=== PATIENT | female | born 1965 | race Two or more races ===

== ENCOUNTER 2025-02-13 16:10 | Emergency (ER) | payer MEDICAID, OTHER ==
[~2025-02-13] VITALS: Ht 167.6 cm; Wt 84.5 kg
[2025-02-13 16:50] VITALS: TEMP 99
--- NOTE | 2025-02-13 17:23 | ED.PDOC ---
History of Present Illness HPI Comments 59 y/o F, BIBA, with PMHx of DM, UTI's, and arthritis presents to the ED for CC of urinary. EMS reports, patient is coming from assisted living facility where she complains of Garcia Catheter pain x1week. Patient reports, that she has had a Garcia catheter placed x2 years ago d/t DM; endorses last time being changed x1week ago and has since, felt discomfort with associated suprapubic abdominal pain. Patient denies fever, chills, sweats, frequency, or excessive thirst. No other symptoms or modifying factors present at this time. Chief Complaint: Urinary Time Seen by MD: 17:00 Reviewed Notes: Nurses Notes, Beer Cooler Notes, Medications, Allergies Allergies: Coded Allergies: NO KNOWN ALLERGIES (Unverified , 02/13/25) Information Source: Patient, Emergency Med Personnel Mode of Arrival: EMS Severity: Moderate Timing: Days Duration: Since onset Prehospital treatment: None Past Medical History PAST MEDICAL HISTORY: Arthritis, DM, UTI'S Surgical History: Unknown SPEARER History: Denies all SPEARER Hx Family History Family History: Unknown Social History Smoker: Non-Smoker Alcohol: Denies ETOH Use Drugs: Denies Drug Use Lives In: Assisted Care Constitutional: denies: chills, diaphoresis, fatigue, fever, malaise, sweats, weakness, others EENTM: denies: blurred vision, double vision, ear bleeding, ear discharge, ear drainage, ear pain, ear ringing, eye pain, eye redness, hearing loss, mouth pain, mouth swelling, nasal discharge, nose bleeding, nose congestion, nose pain, photophobia, tearing, throat pain, throat swelling, voice changes, others Respiratory: denies: cough, hemoptysis, orthopnea, SOB at rest, shortness of breath, SOB with excertion, stridor, wheezing, others Cardiovascular: denies: chest pain, dizzy spells, diaphoresis, Dyspnea on exertion, edema, irregular heart beat, left arm pain, lightheadedness, palp itations, PND, syncope, others Gastrointestinal: denies: abdomen distended, abdominal pain, blood streaked bowels, constipated, diarrhea, dysphagia, difficulty swallowing, hematemesis, melena, nausea, poor appetite, poor fluid intake, rectal bleeding, rectal pain, vomiting, others Genitourinary: denies: abnormal vagina bleeding, burning, dyspareunia, dysuria, flank pain, frequency, hematuria, incontinence, pain, , vagina discharge, urgency, others Neurological: denies: dizziness, fainting, headache, left sided numbness, left sided weakness, numbness, paresthesia, pre-existing deficit, right sided numbness, right sided weakness, seizure, speech problems, tingling, tremors, weakness, others Musculoskeletal: denies: back pain, gout, joint pain, joint swelling, muscle pain, muscle stiffness, neck pain, others Integumetry: denies: bruises, change in color, change in hair/nails, dryness, laceration, lesions, lumps, rash, wounds, others Allergic/Immunocompromised: denies: Difficulty Healing, Frequent Infections, Hives, Itching, others Hematologic/Lymphatic: denies: anemia, blood clots, easy bleeding, easy br uising, swollen glands, others Endocrine: denies: excessive hunger, excessive sweating, excessive thirst, excessive urination, flushing, intolerance to cold, intolerance to heat, unexplained weight gain, unexplained weight loss, others Psychiatric: denies: anxiety, bipolar disorder, depression, hopeless, panic disorder, schizophrenia, sleepless, suicidal, others All Other Systems: Reviewed and Negative Physical Exam General Appearance: No Apparent Distress, Normal HEENT: Normal ENT Inspection, Pharynx Normal, TMs Normal Neck: Full Range of Motion, Non-Tender, Normal, Normal Inspection Respiratory: Chest Non-Tender, Lungs Clear, No Accessory Muscle Use, No Respiratory Distress, Normal Breath Sounds Cardiovascular: No Edema, No Murmur, No Gallop, Normal Peripheral Pulses, Regular Rate/Rhythm Breast Exam: Deferred Gastrointestinal: No Organomegaly, Non Tender, No Pulsatile Mass, Normal Bowel Sounds, Soft Genitalia: Deferred Pelvic: Deferred Rectal: Deferred Extremities: No calf tenderness, Normal capillary refill, Normal inspection, Normal range of motion, Non-tender, No pedal edema Musculoskeletal : Apperance: Normal Neurologic: Alert, 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 Was a procedure done?: No Differential Dx Considerations may include: UTI, MISPLACED GARCIA CATHETER, colitis, sbo, chronic pain X-Ray, Labs, Meds, VS Vital Signs Date Time Temp Pulse Resp B/P (MAP) Pulse Ox O2 Delivery O2 Flow Rate FiO2 02/13/25 17:00 Room Air* 0 21 02/13/25 16:50 99.0 96 16 122/50 (74) 97 99.0 02/13/25 16:35 98 02/13/25 16:20 99.0 100 18 130/100 (110) 99 99.0 Lab Test 02/13/25 17:44 02/13/25 17:15 Range/Units White Blood Count 8.4 4.4-10.8 10^3/uL Red Blood Count 4.11 4.0-5.20 10^6/uL Hemoglobin 12.3 12.2-16.2 g/dL Hematocrit 37.0 36.0-46.0 % Mean Corpuscular Volume 90.0 80.0-100.0 fL Mean Corpuscular Hemoglobin 29.9 28.0-32.0 pg Mean Corpuscular Hemoglobin Concent 33.3 32.0-36.0 g/dL Red Cell Distribution Width 14.0 11.8-14.3 % Platelet Count 322 140-450 10^3/uL Mean Platelet Volume 7.4 6.9-10.8 fL Neutrophils (%) (Auto) 71.1 37.0-80.0 % Lymphocytes (%) (Auto) 19.3 10.0-50.0 % Monocytes (%) (Auto) 5.4 0.0-12.0 % Eosinophils (%) (Auto) 3.6 0.0-7.0 % Basophils (%) (Auto) 0.6 0.0-2.0 % Neutrophils # (Auto) 6.0 1.6-8.6 10 ^3/uL Lymphocytes # (Auto) 1.6 0.4-5.4 10 ^3/uL Monocytes # (Auto) 0.5 0-1.3 10 ^3/uL Eosinophils # (Auto) 0.3 0-0.8 10 ^3/uL Basophils # (Auto) 0.1 0-0.2 10 ^3/uL Nucleated Red Blood Cells 0.0 % Sodium Level 139 136-145 mmol/L Potassium Level 4.7 3.5-5.1 mmol/L Chloride Level 107 98-107 mmol/L Carbon Dioxide Level 24 20-31 mmol/L Anion Gap 8 5-15 Blood Urea Nitrogen 29 H 9-23 mg/dL Creatinine 1.21 H 0.550-1.02 mg/dL Glomerular Filtration Rate Calc 51 >90 mL/min BUN/Creatinine Ratio 24.0 H 10.0-20.0 Serum Glucose 171 H 74-106 mg/dL Calcium Level 9.9 8.7-10.4 mg/dL Total Bilirubin 0.4 0.2-1.0 mg/dL Aspartate Amino Transferase (AST) < 8 L 13-40 U/L Alanine Aminotransferase (ALT) 12 7-40 U/L Alkaline Phosphatase 120 H 46-116 U/L Total Protein 7.5 5.7-8.2 g/dL Albumin 4.4 3.2-4.8 g/dL Urine Color Colorless Yellow Urine Clarity Ex.turbid Clear Urine pH 5.5 5.0-9.0 Urine Specific [place] 1.022 1.001-1.035 Urine Protein Trace H Negative Urine Ketones Negative Negative Urine Blood 1+ H Negative /uL Urine Nitrite 1+ H Negative Urine Bilirubin Negative Negative Urine Urobilinogen Normal Negative mg/dL Urine Leukocyte Esterase 3+ Negative /uL Urine RBC 46 0 - 4 /hpf Urine WBC Clumps Present None Seen /hpf Urine Microscopic WBC 745 H 0-5 /HPF Urine Squamous Epithelial Cells Few <5 /hpf Urine Bacteria Few H None Seen /hpf Urine Mucus Few None Seen Urine Yeast (Budding) Moderate None Seen /hpf Urine Glucose 4+ H Normal mg/dL [place] [id number] Ph: [phone] DIAGNOSTIC IMAGING Diagnostic Imaging Report : [id number] Signed PATIENT: VINNY RAIACCT: [id number] UNIT: [id number] : 1965 LOC: ER ROOM / BED: / AGE / SEX: 59 / F ADM STATUS: REG ER SERVICE 1700 ORDERING PHYSICIAN: VINNIE SOW MD PROCEDURE(s): ABPL - CT AB PEL WO CON-NO ORAL OR IV REASON: lowr abdominal pain ORDER NUMBER(s): [id number], ACCESSION NUMBER(s): [id number] Exam: CT CT AB PEL WO CON-NO ORAL OR IV History: lowr abdominal pain Comparison Study: None TECHNIQUE: Multidetector CT of the abdomen was performed from lung bases to pubic symphysis. Imaging was performed without IV contrast. Axial, coronal and sagittal multiplanar reformats were obtained from the axial data set by the technologist. Radiation Dose Information: CT Dose: CTDI volume is 20.94 mGy. Dose-length product is 1132.35 mGy*cm FINDINGS: Evaluation of solid organs is limited due to lack of intravenous contrast use. Findings: Lung Bases: No acute or significant lung base finding. Normal heart size. No pleural or pericardial effusion. Liver: The liver is normal in size. No focal lesions. Hepatomegaly with the liver measuring 19-20 cm in length. Gallbladder and Biliary Tree: Gallbladder has been surgically removed. Spleen: Spleen measures 11 cm. Pancreas: The pancreas is grossly normal in appearance. Adrenal Glands: Unremarkable Kidneys: Staghorn calculus right kidney with cortical atrophy and renal atrophy on the right. Bladder: Garcia catheter in the bladder in the bladder is empty. Bowel: The stomach is grossly normal in appearance. Small bowel and colon are normal in caliber and distribution. The appendix is not visualized; however, no secondary findings of acute appendicitis identified. Ascites: Absent Lymphadenopathy: No mesenteric, retroperitoneal or periportal lymphadenopathy. Abdominal Wall and Mesentery: Unremarkable. Vasculature: The visualized abdominal aorta is normal in size and caliber. Evaluation of abdominal and pelvic vessels is limited due to lack of intravenous contrast. Pelvic Organs: Unremarkable Musculoskeletal: No aggressive focal bony lesions, acute fractures or dislocation. Chronic changes with a right hip there is marked superior joint space narrowing and flattening of the head of the femur on the right. On the left there is an intramedullary reema in the left femur. Soft tissues: Unremarkable IMPRESSION: 1. Calculus on the right with cortical atrophy and renal atrophy. 2. Compensatory enlargement of the left kidney 3. Hepatomegaly with the liver measuring 19-20 cm in length. 4. Mild splenomegaly with the spleen measuring 11 cm. 5. Chronic changes right hip 6. Intramedullary reema left femur. 7. Garcia catheter in the bladder in the bladder is empty. HS:Y Radiation optimization: All CT scans at this facility use at least one of these dose optimization techniques: automated exposure control mA and/or kV adjustment per patient size (includes targeted exams where dose is matched to clinical indication) or iterative reconstruction. ATED BY: MONET ART Jr., DO DICTATED DATE/TIME: 02/13/251750 SIGNED BY: MONET ART Jr., SIGNED DATE/TIME: 02/13/251750 CC: Time of 1ST Reevaluation: 17:30 Reevaluation 1ST: Unchanged Patient Education/Counseling: Diagnosis, Treatment, Prognosis, Need For Follow Up Family Education/Counseling: No Family Present Additional Information The following tests were ordered, and results were reviewed by me: CBC, CMP, UA, CT ABD PEL I reviewed and agreed with the following test results read by other providers: CT ABD PEL I discussed treatment and results with medical personnel and: patient Comprehensive systems review obtained and negative except for what is stated in the HPI. pt refused to have her garcia replaced. her garcia is properly positioned, but has has an uti, which can from chronic colonization. since she has discomfort, i will treat her for cystitis Departure 1 Departure Time of Disposition: 19:04 Impression: Primary Impression: Cystitis Disposition: 01 HOME / SELF CARE / HOMELESS Condition: Good e-Prescriptions Ciprofloxacin Hcl (Cipro) 500 Mg Tab 500 MG PO BID for 7 Days, #14 TAB Prov: VINNIE SOW MD 02/13/25 Discharged With: Self Critical Care Note Critical Care Time?: No Stability Stability form required: No Heart Score Heart Score: Heart Score Response (Comments) Value History N/A 0 EKG N/A 0 Age N/A 0 Risk Factors N/A 0 Troponin N/A 0 Total 0 I personally scribed for VINNIE SOW MD ([email or web address]) on 02/13/25 at 17:23. Electronically submitted by Mira Clements ([email or web address]). I personally scribed for VINNIE SOW MD ([email or web address]) on 02/13/25 at 17:31. Electronically submitted by Mira Clements ([email or web address]). I personally scribed for VINNIE SOW MD ([email or web address]) on 02/13/25 at 18:15. Electronically submitted by Mira Clements ([email or web address]). I personally scribed for VINNIE SOW MD ([facility]) on 02/13/25 at 18:16. Electronically submitted by Mira Clements [email or web address]). I personally scribed for VINNIE SOW MD ([facility]) on 02/13/25 at 18:18. Electronically submitted by Mira Clements [email or web address]). VINNIE SOW MD February 13, 2025 17:23
[2025-02-13 17:50] LABS: Basophils # (auto) 0.1 10 ^3/uL (0-0.2); Basophils % (auto) 0.6 % (0.0-2.0); Eosinophils # (auto) 0.3 10 ^3/uL (0-0.8); Eosinophils % (auto) 3.6 % (0.0-7.0); Hemoglobin 12.3 g/dL (12.2-16.2); Lymphocytes # (auto) 1.6 10 ^3/uL (0.4-5.4); Lymphocytes % (auto) 19.3 % (10.0-50.0); Mean Corpuscular Hemoglobin 29.9 pg (28.0-32.0); Mean Corpuscular Hgb Conc. 33.3 g/dL (32.0-36.0); Monocytes # (auto) 0.5 10 ^3/uL (0-1.3); Monocytes % (auto) 5.4 % (0.0-12.0); Neutrophils % (auto) 71.1 % (37.0-80.0); Platelet Count (auto) 322 10^3/uL (140-450); Red Blood Cells 4.11 10^6/uL (4.0-5.20); White Blood Cell 8.4 10^3/uL (4.4-10.8)
--- NOTE | 2025-02-13 17:53 | DVH ---
Exam: CT CT AB PEL WO CON-NO ORAL OR IV History: lowr abdominal pain Comparison Study: None TECHNIQUE: Multidetector CT of the abdomen was performed from lung bases to pubic symphysis. Imaging was performed without IV contrast. Axial, coronal and sagittal multiplanar reformats were obtained fr om the axial data set by the technologist. Radiation Dose Information: CT Dose: CTDI volume is 20.94 mGy. Dose-length product is 1132.35 mGy*cm FINDINGS: Evaluation of solid organs is limited due to lack of intravenous contrast use. Findings: Lung Bases: No acute or significant lung base finding. Normal heart size. No pleural or pericardial effusion. Liver: The liver is normal in size. No focal lesions. Hepatomegaly with the liver measuring 19-20 cm in length. Gallbladder and Biliary Tree: Gallbladder has been surgically removed. Spleen: Spleen measures 11 cm. Pancreas: The pancreas is grossly normal in appearance. Adrenal Glands: Unremarkable Kidneys: Staghorn calculus right kidney with cortical atrophy and renal atrophy on the right. Bladder: Gutiérrez catheter in the bladder in the bladder is empty. Bowel: The stomach is grossly normal in appearance. Small bowel and colon are normal in caliber and d istribution. The appendix is not visualized; however, no secondary findings of acute appendicitis id entified. Ascites: Absent Lymphadenopathy: No mesenteric, retroperitoneal or periportal lymphadenopathy. Abdominal Wall and Mesentery: Unremarkable. Vasculature: The visualized abdominal aorta is normal in size and caliber. Evaluation of abdominal a nd pelvic vessels is limited due to lack of intravenous contrast. Pelvic Organs: Unremarkable Musculoskeletal: No aggressive focal bony lesions, acute fractures or dislocation. Chronic changes wi th a right hip there is marked superior joint space narrowing and flattening of the head of the femur on the right. On the left there is an intramedullary reema in the left femur. Soft tissues: Unremarkable IMPRESSION: 1. Calculus on the right with cortical atrophy and renal atrophy. 2. Compensatory enlargement of the left kidney 3. Hepatomegaly with the liver measuring 19-20 cm in length. 4. Mild splenomegaly with the spleen measuring 11 cm. 5. Chronic changes right hip 6. Intramedullary reema left femur. 7. Gutiérrez catheter in the bladder in the bladder is empty. HS:Y Radiation optimization: All CT scans at this facility use at least one of these dose optimization dontae hniques: automated exposure control mA and/or kV adjustment per patient size (includes targeted exam s where dose is matched to clinical indication) or iterative reconstruction.
[2025-02-13 18:07] LABS: Alanine Aminotransferase 12 U/L (7-40); Albumin 4.4 g/dL (3.2-4.8); Anion Gap 8 (5-15); Calcium 9.9 mg/dL (8.7-10.4); Carbon Dioxide 24 mmol/L (20-31); Chloride 107 mmol/L (98-107); Potassium 4.7 mmol/L (3.5-5.1); Sodium 139 mmol/L (136-145); Total Protein 7.5 g/dL (5.7-8.2)
[2025-02-13 18:08] LABS: Bilirubin, Total 0.4 mg/dL (0.2-1.0)
[2025-02-13 18:36] LABS: Urine Bacteria FEW /hpf (None Seen); Urine Blood 1+ /uL (Negative); Urine Budding Yeast MODERATE /hpf (None Seen); Urine Clarity Ex.Turbid (Clear); Urine Color Colorless (Yellow); Urine Mucus FEW (None Seen); Urine Protein, UAD TRACE (Negative); Urine Specific Gravity 1.022 (1.001-1.035); Urine Squamous Epithelial Cell FEW /hpf (<5); Urine Urobilinogen Normal (Negative); Urine WBC 745 /HPF (0-5); Urine WBC Clumps PRESENT /hpf (None Seen); Urine pH 5.5 (5.0-9.0)
[2025-02-13 18:45] VITALS: BP 124/79; PULSE 102; RESP 17; O2SAT 98
[2025-02-13 18:49] LABS: Alkaline Phosphatase 120 U/L (46-116); Aspartate Aminotransferase < 8 U/L (13-40); Blood Urea Nitrogen 29 mg/dL (9-23); Glucose 171 mg/dL (74-106)
[2025-02-13] MEDS ORDERED: CIPROFLOXACIN HCL 500 MG TAB PO ONE (19:00)
[2025-02-13] MEDS ORDERED: CIPR-173 PO (19:04)
== END 2025-02-13 19:05 | disposition home or self-care (01) ==
LOC: EDBD 16:10 → ER 16:10
DX: N30.90 Cystitis, unspecified without hematuria (principal); M19.90 Unspecified osteoarthritis, unspecified site; E11.9 Type 2 diabetes mellitus without complications
CPT/HCPCS: 36415; 74176; 80053; 81001; 82947; 85025

== ENCOUNTER 2025-02-17 17:07 | Emergency (ER) | payer MEDICAID ==
[~2025-02-17] VITALS: Ht 162.6 cm; Wt 136.0 kg
[~2025-02-17 17:07] MED LIST: CIPR-173 PO
[2025-02-17 17:35] VITALS: PULSE 94; RESP 14; O2SAT 96
--- NOTE | 2025-02-17 18:05 | ED.PDOC ---
General HPI Comments oscar Duncan: L thumb, garcia cath burning. HPI: Poor Historian. Past Medical History: Kidney stones, bed-bound, arthritis, asthma, indwelling Garcia catheter, Past Surgical History: , lithotripsy, Vitals: temperature of 98.1F, pulse of 102, respiratory rate of 18, blood pressure of 91/67, SpO2 of 99%RA REVIEW OF SYSTEMS: CONSTITUTIONAL: Denies acute: fever, diaphoresis, chills, generalized weakness. HEAD: Denies acute: headache, photophobia Eyes: Denies acute: Double vision, vision loss, eye pain, eye discharge. EARS: Denies acute: tinnitus, hearing loss, ear discharge, ear pain, THROAT: Denies acute: sore throat, swelling, difficulty swallowing , pain with swallowing, change in voice. NECK: Denies acute: neck pain, neck swelling, stiff neck. HEART: Denies acute : chest pain, palpitations, LUNGS: Denies acute: SOB, wheezing, cough, hemoptysis ABDOMEN: Denies acute: abdominal pain, Nausea, Vomiting, diarrhea, melena , hematemesis, hematochezia SKIN: Denies acute: rash, redness, lesions, itchiness. EXTREMITIES: Denies acute: calf pain, numbness, tingling, weakness, Denies acute: Low back pain. Neuro: Denies acute: focal neurological deficit, motor or sensory focal neurological deficit, tremors, seizure like activity, confusion, dizziness, change in mental status, loss of bowel or bladder function, cauda equina like symptoms. : Denies acute: , hematuria, flank pain, increase in urinary frequency. PSYCH: Denies acute: hallucination, suicidal ideation, homicidal ideation. FEMALE: Denies acute: abnormal vaginal bleeding, foul odor, unusual discharge. PHYSICAL EXAM: General: ---mild-----acute distress, awake and alert. Head: normocephalic, atraumatic. Neck: supple, trachea is midline, no swelling. Throat: Normal phonation. Eyes:, no erythema, no purulent discharge, no proptosis, no icterus. Heart: regular rate, regular rhythm, no significant murmur appreciated. Lungs: no apparent respiratory distress, Able to speak in full sentences. No wheezing, no rhonchi, no crackles. No stridors Clear to auscultation bilaterally. Abdomen: non tender to palpation, non distended, soft, no guarding, no rebound, + bowel sounds. Obese. Neuro: Awake, Alert, oriented to name, self, situation, follows commands GCS=15. Speech is normal. Skin: no petechia, no purpura, no cyanosis, non-pale, not jaundice. Lower extremities: --no - Pitting edema no deformity, no focal swelling, no calf TTP. Makes eye contact. Bed-bound for multiple hip fractures. Indwelling Garcia catheter. Urine looks cloudy. Face: no apparent facial droop. Evaluation of the left thumb area of complaint: Left lateral aspect of the thumb has what appears to be an infection with pus that could be drained. We will attempt an I and D. there is tenderness to palpation over the distal left thumb with the some erythema and slight swelling. Patient is neurovascularly intact in the affected extremity. ED COURSE: Chief Complaint: Wound Check Time Seen by MD: 17:17 Primary Care Provider: UNKNOWN Reviewed notes: Nurses Notes, Allergies Allergies: Coded Allergies: NO KNOWN ALLERGIES (Unverified , 02/13/25) Home Meds Active Scripts Cephalexin Monohydrate (Cephalexin) 500 Mg Cap, 500 MG PO Q6HR for 7 Days, #28 TAB Prov:ANJU GOEL DO 02/17/25 Ciprofloxacin Hcl (Cipro) 500 Mg Tab, 500 MG PO BID for 7 Days, #14 TAB Prov:VINNIE SOW MD 02/13/25 Information Source: Patient Mode of Arrival: EMS Past Medical History PAST MEDICAL HISTORY: Arthritis, DM, UTI'S Surgical History: Unknown HEAD STRENGTH AND CONDITIONING COACH History: Denies all HEAD STRENGTH AND CONDITIONING COACH Hx Family History Family History: Unknown Social History Smoker: Non-Smoker Alcohol: Denies ETOH Use Drugs: Denies Drug Use Lives In: Assisted Care Was a procedure done? Was a procedure done?: Yes Sedation Sedation?: No Incision and Drainage Incision and Drainage: Abscess Location left thumb Notes LET and lidocaine were used for topical anesthesia. Betadine was used for cleaning the digit in the hand. Small needle puncture was used to Tunde the abscess. Proximally 1 cc of purulent content was drained. Patient tolerated the procedure well. The area was cleaned well again with Betadine and wound dressing was applied to the area. Wound care instructions given to the patient. Patient was given antibiotics. Differential Diagnosis Kidney stone (Female): N/A X-Ray, Labs, Meds, VS Vital Signs Date Time Temp Pulse Resp B/P (MAP) Pulse Ox O2 Delivery O2 Flow Rate FiO2 02/17/25 20:13 88 14 96 Room Air* 0 21 02/17/25 19:52 98.7 88 14 120/60 (80) 96 98.7 02/17/25 17:35 94 14 96 Room Air* 0 21 02/17/25 17:35 98.4 94 14 104/67 (79) 96 98.4 02/17/25 17:34 98.1 102 18 91/67 (75) 99 98.1 Lab Test 02/17/25 19:31 02/17/25 18:23 02/17/25 18:00 Range/Units Troponin I High Sensitivity < 3 L 3 L </=34 ng/L White Blood Count 9.1 4.4-10.8 10^3/uL Red Blood Count 4.00 4.0-5.20 10^6/uL Hemoglobin 12.0 L 12.2-16.2 g/dL Hematocrit 36.0 36.0-46.0 % Mean Corpuscular Volume 89.8 80.0-100.0 fL Mean Corpuscular Hemoglobin 30.0 28.0-32.0 pg Mean Corpuscular Hemoglobin Concent 33.4 32.0-36.0 g/dL Red Cell Distribution Width 14.0 11.8-14.3 % Platelet Count 301 140-450 10^3/uL Mean Platelet Volume 7.8 6.9-10.8 fL Neutrophils (%) (Auto) 72.6 37.0-80.0 % Lymphocytes (%) (Auto) 19.1 10.0-50.0 % Monocytes (%) (Auto) 5.6 0.0-12.0 % Eosinophils (%) (Auto) 2.3 0.0-7.0 % Basophils (%) (Auto) 0.4 0.0-2.0 % Neutrophils # (Auto) 6.6 1.6-8.6 10 ^3/uL Lymphocytes # (Auto) 1.7 0.4-5.4 10 ^3/uL Monocytes # (Auto) 0.5 0-1.3 10 ^3/uL Eosinophils # (Auto) 0.2 0-0.8 10 ^3/uL Basophils # (Auto) 0 0-0.2 10 ^3/uL Nucleated Red Blood Cells 0.0 % Erythrocyte Sedimentation Rate 58 H 0-20 mm/hr Sodium Level 139 136-145 mmol/L Potassium Level 4.2 3.5-5.1 mmol/L Chloride Level 107 98-107 mmol/L Carbon Dioxide Level 22 20-31 mmol/L Anion Gap 10 5-15 Blood Urea Nitrogen 30 H 9-23 mg/dL Creatinine 1.21 H 0.550-1.02 mg/dL Glomerular Filtration Rate Calc 51 >90 mL/min BUN/Creatinine Ratio 24.8 H 10.0-20.0 Serum Glucose 156 H 74-106 mg/dL Lactic Acid Level 1.8 0.4-2.0 mmol/L Calcium Level 8.9 8.7-10.4 mg/dL Total Bilirubin 0.2 0.2-1.0 mg/dL Aspartate Amino Transferase (AST) < 8 L 13-40 U/L Alanine Aminotransferase (ALT) < 9 7-40 U/L Alkaline Phosphatase 116 46-116 U/L C-Reactive Protein High Sensitivity 2.22 H <1.0 mg/dL B-Type Natriuretic Peptide 8.51 0-100 pg/mL Total Protein 7.2 5.7-8.2 g/dL Albumin 4.2 3.2-4.8 g/dL Urine Color Colorless Yellow Urine Clarity Turbid H Clear Urine pH 5.5 5.0-9.0 Urine Specific Fields 1.024 1.001-1.035 Urine Protein Trace H Negative Urine Ketones Negative Negative Urine Blood Trace H Negative /uL Urine Nitrite 2+ H Negative Urine Bilirubin Negative Negative Urine Urobilinogen Normal Negative mg/dL Urine Leukocyte Esterase 3+ Negative /uL Urine RBC 17 0 - 4 /hpf Urine WBC Clumps Present None Seen /hpf Urine Microscopic WBC 153 H 0-5 /HPF Urine Squamous Epithelial Cells Few <5 /hpf Urine Bacteria Few H None Seen /hpf Urine Mucus Few None Seen Urine Yeast (Budding) Few None Seen /hpf Urine Glucose 4+ H Normal mg/dL Current Medications Medications (Trade) Dose Ordered Sig/Shira Route Start Time Stop Time Status Last Admin Ceftriaxone Sodium 50 ml @ 100 mls/hr ONCE ONCE IV 02/17/25 21:00 02/17/25 21:29 DC 02/17/25 21:38 Lidocaine HCl (Lidocaine HCl Jelly) 5 ml ONCE ONCE TOP 02/17/25 22:15 02/17/25 22:16 DC 02/17/25 22:10 Tetracaine/ Epinephrine/ Lidocaine 5 ml ONCE ONCE TOP 02/17/25 22:15 02/17/25 22:16 DC 02/17/25 22:10 Acetaminophen/ Hydrocodone Bitart ([place] 5/325MG Tab) 1 tab ONCE ONCE PO 02/17/25 23:00 02/17/25 23:01 DC 02/17/25 23:02 [place] [id number] Ph: [phone] DIAGNOSTIC IMAGING Diagnostic Imaging Report : [id number] Signed PATIENT: OSCAR DUNCAN ACCT: [id number] UNIT: [id number] : 1965 LOC: ER ROOM / BED: / AGE / SEX: 59 / F ADM STATUS: REG ER SERVICE 1723 ORDERING PHYSICIAN: ANJU GOEL DO PROCEDURE(s): CXRP - CHEST PORTABLE REASON: Multiple complaints ORDER NUMBER(s): [id number], ACCESSION NUMBER(s): [id number] CHEST RADIOGRAPH Indication: Multiple complaints Technique: Single frontal view of the chest was obtained Comparison: None FINDINGS: Lines and Tubes: None Lungs: No focal consolidation. Pleura: No effusion. No pneumothorax. Cardiomediastinal contours: Unremarkable Bones: Intramedullary reema in the right humerus. Old healed right clavicle fracture IMPRESSION: 1. No acute cardiopulmonary disease. ATED BY: MONET ART Jr., DO DICTATED DATE/TIME: 02/17/252033 SIGNED BY: MONET ART Jr., DO SIGNED DATE/TIME: 02/17/252033 CC: Time of 1ST Reevaluation: 22:53 Reevaluation 1ST: Improved Time of 2ND Reevaluation: 23:20 (PATIENT FEELS SIGNIFICANTLY BETTER AFTER THE GARCIA CATHETER WAS REPLACED.) Reevaluation 2ND: Improved Patient Education/Counseling: Diagnosis, Treatment Family Education/Counseling: No Family Present Comments LET and lidocaine were used for topical anesthesia. Betadine was used for cleaning the digit in the hand. Small needle puncture was used to Tunde the abscess. Proximally 1 cc of purulent content was drained. Patient tolerated the procedure well. The area was cleaned well again with Betadine and wound dressing was applied to the area. Wound care instructions given to the patient. Patient was given antibiotics. Patient presented with the above HPI.--urinary/Garcia catheter discomfort----workup was initiated. patient was found with the above mentioned diagnosis. Patient states that she was here two days ago to have a Garcia catheter removed but they did not. She continues to have some discomfort at the catheter site. the following medications were ordered: please refer to order lists of meds and tests obtained by myself Dr. Goel. Patient ED course and VS have been stabilized. Patient has been reassessed in the ED and remained in a stable condition. Pertinent incidental findings were discussed with the patient and/or family. Patient/family voices understanding and is agreeable with plan. Patient has been observed in the ED adequate length of time to insure improvement/stability. Escalation of care considered: Consideration of escalation to observation or admission Patient was found with a cystitis UTI. Antibiotics initiated. Patient was found with paronychia. I and D was performed. Patient was sent home with antibiotics. Patient was DISCHARGED home in a stable condition. All the reports of any imaging studies that were ordered by myself were reviewed by myself. Departure 1 Departure Time of Disposition: 22:54 Impression: Primary Impression: UTI (urinary tract infection) Additional Impressions: Cystitis Paronychia of finger Disposition: 01 HOME / SELF CARE / HOMELESS Condition: Stable Additional Instructions: Additional instructions: You MUST follow-up with your primary care/family doctor in 1 to 2 days. If you are unable to see your primary care/family doctor, please return to our emergency room for re-assessment and re-evaluation in 1 to 2 days. Return to the emergency room here in our facility or to the nearest ER [facility] if your symptoms change or worsen. CONSULTATIONS: you MUST Follow-up for consultation as soon as possible with: -urology in 1-2 days. And hand orthopedic surgeon in 1-2 days. Please call for appointment. You MUST call the consultants office yourself to make an appointment. You may need to arrange that through your insurance and/or your primary/family doctor. If you are unable to see the chain sales consultant in 1 to 2 days, you must return to our emergency room (or any other ER of your choice) for re-assessment and re- evaluation. Adequate fluid hydration. Do not submerge your hand in the next 48 hours. e-Prescriptions Cephalexin Monohydrate (Cephalexin) 500 Mg Cap 500 MG PO Q6HR for 7 Days, #28 TAB Prov: ANJU GOEL DO 02/17/25 Discharged With: Self Critical Care Note Critical Care Time?: No I personally scribed for ANJU GOEL DO ([email or web address]) on 02/17/25 at 23:35. Electronically submitted by Cesar Arevalo ([email or web address]). ANJU GOEL DO February 17, 2025 18:05
[2025-02-17 18:44] LABS: Basophils # (auto) 0 10 ^3/uL (0-0.2); Basophils % (auto) 0.4 % (0.0-2.0); Eosinophils # (auto) 0.2 10 ^3/uL (0-0.8); Eosinophils % (auto) 2.3 % (0.0-7.0); Lymphocytes # (auto) 1.7 10 ^3/uL (0.4-5.4); Lymphocytes % (auto) 19.1 % (10.0-50.0); Mean Corpuscular Hgb Conc. 33.4 g/dL (32.0-36.0); Mean Corpuscular Volume 89.8 fL (80.0-100.0); Monocytes # (auto) 0.5 10 ^3/uL (0-1.3); Monocytes % (auto) 5.6 % (0.0-12.0); Neutrophils # (auto) 6.6 10 ^3/uL (1.6-8.6); Neutrophils % (auto) 72.6 % (37.0-80.0); Platelet Count (auto) 301 10^3/uL (140-450); White Blood Cell 9.1 10^3/uL (4.4-10.8)
[2025-02-17 18:55] LABS: Albumin 4.2 g/dL (3.2-4.8); Anion Gap 10 (5-15); BUN/Creatinine Ratio 24.8 (10.0-20.0); Calcium 8.9 mg/dL (8.7-10.4); Carbon Dioxide 22 mmol/L (20-31); Chloride 107 mmol/L (98-107); Potassium 4.2 mmol/L (3.5-5.1); Sodium 139 mmol/L (136-145); Total Protein 7.2 g/dL (5.7-8.2)
[2025-02-17 19:03] LABS: Alanine Aminotransferase < 9 U/L (7-40); Alkaline Phosphatase 116 U/L (46-116); Aspartate Aminotransferase < 8 U/L (13-40); Bilirubin, Total 0.2 mg/dL (0.2-1.0); Blood Urea Nitrogen 30 mg/dL (9-23); Glucose 156 mg/dL (74-106)
[2025-02-17 19:18] LABS: Erythrocyte Sedimentation Rate 58 mm/hr (0-20)
[2025-02-17 19:24] LABS: CRP High Sensitivity 2.22 mg/dL (<1.0)
[2025-02-17 19:52] VITALS: BP 120/60; TEMP 98.7
[2025-02-17 20:13] VITALS: PULSE 88; RESP 14; O2SAT 96
[2025-02-17 20:31] LABS: Urine Bacteria FEW /hpf (None Seen); Urine Blood TRACE /uL (Negative); Urine Budding Yeast FEW /hpf (None Seen); Urine Clarity Turbid (Clear); Urine Color Colorless (Yellow); Urine Mucus FEW (None Seen); Urine Protein, UAD TRACE (Negative); Urine Specific Gravity 1.024 (1.001-1.035); Urine Squamous Epithelial Cell FEW /hpf (<5); Urine Urobilinogen Normal (Negative); Urine WBC 153 /HPF (0-5); Urine WBC Clumps PRESENT /hpf (None Seen); Urine pH 5.5 (5.0-9.0)
--- NOTE | 2025-02-17 20:36 | DVH ---
CHEST RADIOGRAPH Indication: Multiple complaints Technique: Single frontal view of the chest was obtained Comparison: None FINDINGS: Lines and Tubes: None Lungs: No focal consolidation. Pleura: No effusion. No pneumothorax. Cardiomediastinal contours: Unremarkable Bones: Intramedullary reema in the right humerus. Old healed right clavicle fracture IMPRESSION: 1. No acute cardiopulmonary disease.
[2025-02-17] MEDS: cefTRIAXone 1GM/50ML D5W 50 ML IV ONE (21:38)
[2025-02-17] MEDS: LIDOCAINE VISCOUS 2% 15ML UD MT ONE (22:07)
[2025-02-17] MEDS: LIDOCAINE 2% TOPICAL JELLY 5 ML URJT TOP ONE (22:10)
[2025-02-17] MEDS: LET TOPICAL SOLN 5 ML TOP ONE (22:10)
[2025-02-17] MEDS ORDERED: CEPH500C PO (22:55)
[2025-02-17] MEDS: HYDROcodone-ACET 5/325MG TAB PO ONE (23:02)
--- NOTE | 2025-02-25 06:54 | ECG ---
[facility] Test Date: 2025-02-13 Test Time: 16:35:49 Pat Name: VINNY RAI Department: ED Room: Gender: F Executive Business Coach: VINNIE : 1965 Requested By: ANJU GOEL Order Number: [id number] Reading MD: Sal Eisenberg Measurements Intervals [place] Rate: 98 P: 59 OK: 130 QRS: -26 QRSD: 123 T: 27 QT: 374 QTc: 478 Interpretive Statements Sinus rhythm Right bundle branch block Baseline wander in lead(s) II,III,aVR,aVF,V5 Electronically Signed On 02-25-2025 9:28:52 PDT by Sal Eisenberg Please click the below link to view image of tracing.
== END 2025-02-17 23:10 | disposition home or self-care (01) ==
LOC: EDUNIT# 17:07 → EDBD 17:07 → ER 17:07
DX: L03.012 Cellulitis of left finger (principal); N39.0 Urinary tract infection, site not specified; M19.90 Unspecified osteoarthritis, unspecified site; E11.9 Type 2 diabetes mellitus without complications; Z79.899 Other long term (current) drug therapy
CPT/HCPCS: 10060; 36415; 71045; 80053; 81001; 83605; 83880; 84484; 85025; 85652; 86141; 87040; 93005; 96365; 99285; J0696

== ENCOUNTER 2025-02-18 03:44 | Inpatient (IN) | payer MEDICAID ==
[~2025-02-18] VITALS: Ht 165.1 cm; Wt 99.0 kg
[~2025-02-18 03:44] MED LIST changes: +CEPH500C PO
[2025-02-18] MEDS: HALOPERIDOL LACTATE 5 MG/ML INJ VIAL IM ONE (04:12)
--- NOTE | 2025-02-18 04:19 | ED.PDOC ---
History of Present Illness HPI Comments 59-year-old, morbidly obese and bed-bound F is BIBA for Gutiérrez catheter replacement inquirey. Patient was seen and discharged on 02/17/25 from [facility] ED for abscess on her right thumb. She claims on having her catheter replaced during encounter before being discharged and having associated discomfort ever since a longside claims of it not draining properly. Patient has a history of arthritis, indwelling Gutiérrez catheter, DM, kidney stones s/p lithotripsy, frequent UTI's, and assisted care. She denies having any fever, chills, nausea, vomiting, abdominal pain, or further associated symptoms. Chief Complaint: Tube Replacement Time Seen by MD: 03:40 Primary Care Provider: UNKNOWN Reviewed Notes: Nurses Notes, Wildland Firefighter Notes, Medications, Allergies Allergies: Coded Allergies: NO KNOWN ALLERGIES (Unverified , 02/13/25) Home Meds Active Scripts Cephalexin Monohydrate (Cephalexin) 500 Mg Cap, 500 MG PO Q6HR for 7 Days, #28 TAB Prov:ANJU GOEL DO 02/17/25 Ciprofloxacin Hcl (Cipro) 500 Mg Tab, 500 MG PO BID for 7 Days, #14 TAB Prov:VINNIE SOW MD 02/13/25 Information Source: Patient, Emergency Med Personnel Mode of Arrival: EMS Severity: Moderate Timing: Hours Duration: Since onset Prehospital treatment: 12 Lead EKG, [facility] Past Medical History PAST MEDICAL HISTORY: Arthritis, DM, Kidney Stones, UTI'S Past Medical History (Other): bed-bound, indwelling Gutiérrez catheter Surgical History: Surgical History (Other): lithotripsy DIRECTOR ADVERTISING History: Denies all DIRECTOR ADVERTISING Hx Family History Family History: Unknown Social History Smoker: Non-Smoker Alcohol: Denies ETOH Use Drugs: Denies Drug Use Lives In: Assisted Care (bed-bound) All Other Systems: Reviewed and Negative (Comprehensive systems review obtained and negative except for what is stated in the HPI.) Physical Exam General Appearance: No Apparent Distress, Obese HEENT: Normal ENT Inspection, Pharynx Normal, TMs Normal Neck: Full Range of Motion, Non-Tender, Normal, Normal Inspection Respiratory: Chest Non-Tender, Lungs Clear, No Accessory Muscle Use, No Respiratory Distress, Normal Breath Sounds Cardiovascular: No Edema, No JVD, No Murmur, No Gallop, Normal Peripheral Pulses, Regular Rate/Rhythm Breast Exam: Deferred Gastrointestinal: No Organomegaly, Non Tender, No Pulsatile Mass, Normal Bowel Sounds, Soft Genitalia: Other (Gutiérrez catheter in place ) Pelvic: Deferred Rectal: Deferred Extremities: No calf tenderness, Normal capillary refill, Normal inspection, Normal range of motion, Non-tender, No pedal edema Musculoskeletal : Apperance: Normal Neurologic: Alert, checkout supervisor II-XII nml as Tested, No Motor Deficits, Normal Affect, Normal Mood, No Sensory Deficits Cerebellar Function: Normal Reflexes: Normal Skin: Dry, Normal Color, Warm Lymphatic: No Adenopathy Was a procedure done? Was a procedure done?: No Differential Dx Considerations may include: Gutiérrez catheter replacement, UTI, cystitis, among others X-Ray, Labs, Meds, VS Vital Signs Date Time Temp Pulse Resp B/P (MAP) Pulse Ox O2 Delivery O2 Flow Rate FiO2 02/18/25 03:54 97.4 101 18 154/82 (106) 96 97.4 Lab Test 02/18/25 04:01 Range/Units White Blood Count 9.5 4.4-10.8 10^3/uL Red Blood Count 3.98 L 4.0-5.20 10^6/uL Hemoglobin 12.1 L 12.2-16.2 g/dL Hematocrit 36.2 36.0-46.0 % Mean Corpuscular Volume 90.8 80.0-100.0 fL Mean Corpuscular Hemoglobin 30.5 28.0-32.0 pg Mean Corpuscular Hemoglobin Concent 33.6 32.0-36.0 g/dL Red Cell Distribution Width 14.2 11.8-14.3 % Platelet Count 331 140-450 10^3/uL Mean Platelet Volume 7.8 6.9-10.8 fL Neutrophils (%) (Auto) 71.6 37.0-80.0 % Lymphocytes (%) (Auto) 20.2 10.0-50.0 % Monocytes (%) (Auto) 5.3 0.0-12.0 % Eosinophils (%) (Auto) 2.2 0.0-7.0 % Basophils (%) (Auto) 0.7 0.0-2.0 % Neutrophils # (Auto) 6.8 1.6-8.6 10 ^3/uL Lymphocytes # (Auto) 1.9 0.4-5.4 10 ^3/uL Monocytes # (Auto) 0.5 0-1.3 10 ^3/uL Eosinophils # (Auto) 0.2 0-0.8 10 ^3/uL Basophils # (Auto) 0.1 0-0.2 10 ^3/uL Nucleated Red Blood Cells 0.0 % Sodium Level 139 136-145 mmol/L Potassium Level 4.7 3.5-5.1 mmol/L Chloride Level 107 98-107 mmol/L Carbon Dioxide Level 24 20-31 mmol/L Anion Gap 8 5-15 Blood Urea Nitrogen 29 H 9-23 mg/dL Creatinine 1.35 H 0.550-1.02 mg/dL Glomerular Filtration Rate Calc 45 >90 mL/min BUN/Creatinine Ratio 21.5 H 10.0-20.0 Serum Glucose 240 H 74-106 mg/dL Calcium Level 9.4 8.7-10.4 mg/dL Current Medications Medications (Trade) Dose Ordered Sig/Shira Route Start Time Stop Time Status Last Admin Haloperidol Lactate (Haldol) 10 mg ONCE ONCE IM 02/18/25 04:00 02/18/25 04:01 DC 02/18/25 04:12 Time of 1ST Reevaluation: 04:20 Reevaluation 1ST: Unchanged Patient Education/Counseling: Diagnosis, Treatment, Need For Follow Up Family Education/Counseling: No Family Present Additional Information Previous visits reviewed: February 13 and 2024 encounters for catheter pain and "green thumb" The following tests were ordered, and results were reviewed by me: KUB abdomen single view, UA, CBC, BMP Additional Information was gathered from interviewing the following independent historians: EMS I reviewed and agreed with the following test results read by other providers: KUB abdomen single view I discussed treatment and results with medical personnel and: patient Departure 1 Departure Time of Disposition: 05:26 (Patient with intractable abdominal pain. We will admit patient for further workup and expert consultation) Impression: Primary Impression: Intractable abdominal pain Disposition: ADMITTED INPATIENT Admit to: Med Surg Condition: Serious Critical Care Note Critical Care Time?: No Stability Stability form required: No Heart Score Heart Score: Heart Score Response (Comments) Value History N/A 0 EKG N/A 0 Age N/A 0 Risk Factors N/A 0 Troponin N/A 0 Total 0 I personally scribed for KRISSY GARCIA MD ([email or web address]) on 02/18/25 at 04:19. Electronically submitted by Cesar Arevalo ([email or web address]). KRISSY GARCIA MD February 18, 2025 04:19
[2025-02-18 04:20] LABS: Basophils # (auto) 0.1 10 ^3/uL (0-0.2); Basophils % (auto) 0.7 % (0.0-2.0); Eosinophils # (auto) 0.2 10 ^3/uL (0-0.8); Eosinophils % (auto) 2.2 % (0.0-7.0); Hematocrit 36.2 % (36.0-46.0); Hemoglobin 12.1 g/dL (12.2-16.2); Lymphocytes # (auto) 1.9 10 ^3/uL (0.4-5.4); Lymphocytes % (auto) 20.2 % (10.0-50.0); Mean Corpuscular Hemoglobin 30.5 pg (28.0-32.0); Mean Corpuscular Hgb Conc. 33.6 g/dL (32.0-36.0); Mean Corpuscular Volume 90.8 fL (80.0-100.0); Monocytes # (auto) 0.5 10 ^3/uL (0-1.3); Monocytes % (auto) 5.3 % (0.0-12.0); Neutrophils # (auto) 6.8 10 ^3/uL (1.6-8.6); Neutrophils % (auto) 71.6 % (37.0-80.0); Platelet Count (auto) 331 10^3/uL (140-450); Red Blood Cells 3.98 10^6/uL (4.0-5.20); Red Cell Distribution Width 14.2 % (11.8-14.3); White Blood Cell 9.5 10^3/uL (4.4-10.8)
[2025-02-18 04:22] LABS: Chloride 107 mmol/L (98-107); Potassium 4.7 mmol/L (3.5-5.1); Sodium 139 mmol/L (136-145)
[2025-02-18 04:23] LABS: Anion Gap 8 (5-15); Carbon Dioxide 24 mmol/L (20-31)
[2025-02-18 04:24] LABS: Calcium 9.4 mg/dL (8.7-10.4)
[2025-02-18 04:28] LABS: BUN/Creatinine Ratio 21.5 (10.0-20.0)
[2025-02-18 04:30] VITALS: PULSE 97; RESP 24; O2SAT 97
[2025-02-18 04:34] LABS: Blood Urea Nitrogen 29 mg/dL (9-23); Glucose 240 mg/dL (74-106)
--- NOTE | 2025-02-18 05:09 | DVH ---
EXAM: XR Abdomen, 1 View CLINICAL INDICATION: abdominal pain TECHNIQUE: Frontal supine view of the abdomen/pelvis. COMPARISON: None FINDINGS: GASTROINTESTINAL TRACT: Fecal retention in the colon consistent with constipation. No dilation. ORGANS: Probable right nephrolithiasis. BONES/JOINTS: Severe degenerative change of the right hip joint. The patient is rotated. Subtle f racture can not be excluded. OTHER FINDINGS: . . IMPRESSION: 1. Fecal retention in the colon consistent with constipation. 2. Probable right nephrolithiasis.
[2025-02-18 07:04] LABS: Urine Bacteria FEW /hpf (None Seen); Urine Blood 2+ /uL (Negative); Urine Budding Yeast FEW /hpf (None Seen); Urine Clarity Turbid (Clear); Urine Color Colorless (Yellow); Urine Protein, UAD TRACE (Negative); Urine Specific Gravity 1.021 (1.001-1.035); Urine Squamous Epithelial Cell FEW /hpf (<5); Urine Urobilinogen Normal (Negative); Urine WBC 379 /HPF (0-5); Urine WBC Clumps PRESENT /hpf (None Seen); Urine pH 5.5 (5.0-9.0)
[2025-02-18 07:30] VITALS: PULSE 81; RESP 20; O2SAT 98
[2025-02-18] MEDS ORDERED: DEXTROSE (50%) 50ML SYRG IV PRN (10:15)
[2025-02-18] MEDS ORDERED: ONDANSETRON HCL 4 MG/2 ML VIAL IV PRN (10:15)
[2025-02-18] MEDS ORDERED: MORPHINE SULFATE INJ 2 MG/ml SYRG IV PRN (10:15)
[2025-02-18] MEDS ORDERED: NITROGLYCERIN 0.4 MG SL TAB SL PRN (10:15)
--- NOTE | 2025-02-18 10:33 | DVHHP2 ---
History of Present Illness Reason for Visit: Dysuria History of Present Illness Diandra Duncan is a 59-year-old female with past medical history of diabetes, asthma, arthritis, nephrolithiasis status post lithotripsy, chronic Gutiérrez catheter placed here at [facility] 1 year ago, frequent UTIs, wheelchair-bound, and who presents to the ED with burning pain while urinating in her Gutiérrez cath. Patient states that she does not use home oxygen however upon examination she is on 2 L nasal cannula. Patient also states that she is wheelchair-bound not bed-bound. Patient reports that she had the Gutiérrez cath placed in for urinary retention. Patient reports that she is from [facility] which is an assisted living facility. Patient denies any chest pain, fever, chills, lightheadedness, weakness, dizziness, recent travels, recent sick contacts, recent trauma or injury, abdominal pain, nausea, vomiting, or diarrhea. Pulmonary: Asthma Renal/: UTI Endocrine: Diabetes Past Medical History Arthritis Nephrolithiasis status post lithotripsy Chronic Gutiérrez for 1 year Wheelchair-bound Past Surgical History: , Other (Lithotripsy) Family History: None Smoke: # pack years ALCOHOL: heavy Drugs: None Lives: Other Domestic Violence: Neg Review of Systems Genitourinary: Dysuria Allergies: Coded Allergies: NO KNOWN ALLERGIES (Unverified , 02/13/25) Medications Current Medications Medications Dose Ordered Sig/Shira Route Start Time Stop Time Status Last Admin Dose Admin Ceftriaxone Sodium 50 ml @ 100 mls/hr DAILY@09 IV 02/18/25 10:15 UNV Polyethylene Glycol 17 gm DAILY PO 02/18/25 10:15 UNV Ondansetron HCl 4 mg Q4HP PRN IV 02/18/25 10:15 UNV Acetaminophen 650 mg Q6HP PRN PO 02/18/25 10:15 UNV Nitroglycerin 0.4 mg Q5MINP PRN SL 02/18/25 10:15 UNV Morphine Sulfate 2 mg Q30M PRN IV 02/18/25 10:15 UNV Enoxaparin Sodium 30 mg DAILY SC 02/19/25 10:00 UNV Diagnostic Test (Pha) 1 strip ACHS 02/18/25 11:30 UNV Insulin Human Regular ACHS SC 02/18/25 11:30 UNV Dextrose 50 ml UD PRN IV 02/18/25 10:15 UNV Exam Vital Signs Vital Signs Date Time Temp Pulse Resp B/P (MAP) Pulse Ox O2 Delivery O2 Flow Rate FiO2 02/18/25 08:00 97.6 80 20 121/65 (83) 99 97.6 02/18/25 07:30 Nasal Cannula* 2 28 General Appearance: Alert, Oriented X3, Cooperative, No acute distress HEENT: Atraumatic, PERRLA, EOMI, Mucous membr. moist/pink Respiratory: Clear to auscultation, Normal air movement Cardiovascular: Normal S1, Normal S2 Abdominal: Normal bowel sounds, Soft, No tenderness Extremities: No clubbing, No cyanosis Skin: No significant lesion Neuro: Normal speech, Normal tone, Sensation intact Psych/Mental Status: Mental status NL, Mood NL Labs/Xrays Labs Test 02/18/25 09:20 02/18/25 06:03 02/18/25 04:01 Range/Units POC Glucose 150 H 70-106 mg/dl Urine Color Colorless Yellow Urine Clarity Turbid H Clear Urine pH 5.5 5.0-9.0 Urine Specific [place] 1.021 1.001-1.035 Urine Protein Trace H Negative Urine Ketones Negative Negative Urine Blood 2+ H Negative /uL Urine Nitrite Negative Negative Urine Bilirubin Negative Negative Urine Urobilinogen Normal Negative mg/dL Urine Leukocyte Esterase 3+ Negative /uL Urine RBC 78 0 - 4 /hpf Urine WBC Clumps Present None Seen /hpf Urine Microscopic WBC 379 H 0-5 /HPF Urine Squamous Epithelial Cells Few <5 /hpf Urine Bacteria Few H None Seen /hpf Urine Yeast (Budding) Few None Seen /hpf Urine Glucose 4+ H Normal mg/dL White Blood Count 9.5 4.4-10.8 10^3/uL Red Blood Count 3.98 L 4.0-5.20 10^6/uL Hemoglobin 12.1 L 12.2-16.2 g/dL Hematocrit 36.2 36.0-46.0 % Mean Corpuscular Volume 90.8 80.0-100.0 fL Mean Corpuscular Hemoglobin 30.5 28.0-32.0 pg Mean Corpuscular Hemoglobin Concent 33.6 32.0-36.0 g/dL Red Cell Distribution Width 14.2 11.8-14.3 % Platelet Count 331 140-450 10^3/uL Mean Platelet Volume 7.8 6.9-10.8 fL Neutrophils (%) (Auto) 71.6 37.0-80.0 % Lymphocytes (%) (Auto) 20.2 10.0-50.0 % Monocytes (%) (Auto) 5.3 0.0-12.0 % Eosinophils (%) (Auto) 2.2 0.0-7.0 % Basophils (%) (Auto) 0.7 0.0-2.0 % Neutrophils # (Auto) 6.8 1.6-8.6 10 ^3/uL Lymphocytes # (Auto) 1.9 0.4-5.4 10 ^3/uL Monocytes # (Auto) 0.5 0-1.3 10 ^3/uL Eosinophils # (Auto) 0.2 0-0.8 10 ^3/uL Basophils # (Auto) 0.1 0-0.2 10 ^3/uL Nucleated Red Blood Cells 0.0 % Sodium Level 139 136-145 mmol/L Potassium Level 4.7 3.5-5.1 mmol/L Chloride Level 107 98-107 mmol/L Carbon Dioxide Level 24 20-31 mmol/L Anion Gap 8 5-15 Blood Urea Nitrogen 29 H 9-23 mg/dL Creatinine 1.35 H 0.550-1.02 mg/dL Glomerular Filtration Rate Calc 45 >90 mL/min BUN/Creatinine Ratio 21.5 H 10.0-20.0 Serum Glucose 240 H 74-106 mg/dL Calcium Level 9.4 8.7-10.4 mg/dL EXAM: XR Abdomen, 1 View CLINICAL INDICATION: abdominal pain TECHNIQUE: Frontal supine view of the abdomen/pelvis. COMPARISON: None FINDINGS: GASTROINTESTINAL TRACT: Fecal retention in the colon consistent with constipation. No dilation. ORGANS: Probable right nephrolithiasis. BONES/JOINTS: Severe degenerative change of the right hip joint. The patient is rotated. Subtle fracture can not be excluded. OTHER FINDINGS: . . IMPRESSION: 1. Fecal retention in the colon consistent with constipation. 2. Probable right nephrolithiasis. Assessment/Plan Assessment/Plan Assessment Dysuria likely due to acute cystitis with chronic Gutiérrez catheter for 1 year Constipation likely due to fecal retention Probable right nephrolithiasis Acute hypoxic respiratory failure SHANE Diabetes type 2 Obesity History of asthma History of arthritis History of nephrolithiasis status post lithotripsy History of chronic Gutiérrez for 1 year History of being wheelchair-bound History of Plan Admit to [facility] Supportive oxygen Renal ultrasound ordered Chest x-ray noted IV antibiotics -ceftriaxone Pain management Hemoglobin A1c ISS and Accu-Cheks Diet DVT prophylaxis-Lovenox PUD prophylaxis-not indicated no history of GERD or GI bleed Discussed plan of care with patient and nurse Counseled patient on lifestyle modifications, diet, and exercise Social work-patient from [facility] Plan discussed with: Patient My Orders Orders - ALISELORAINE GARAY SILK SP[employer]ER Procedure Category Date Status Time Ceftriaxone 1gm/50ml PHA 02/18/25 Logged D5w (Rocephin) 10:15 Urine Bacterial JOSE 02/18/25 Logged Culture 10:09 Lactulose Oral PHA 02/18/25 Logged 10:15 Polyethylene Glycol PHA 02/18/25 Logged 17g Powder (Miralax 10:15 Admit ADMIT 02/18/25 Transmitted 10:09 Allergies NITA 02/18/25 In Process 10:09 Oxygen Per Hour RT 02/18/25 Transmitted 10:09 Ondansetron Hcl PHA 02/18/25 Logged (Zofran) 10:15 Complete Blood Count LAB 02/19/25 Verified 04:00 Comprehensive LAB 02/19/25 Verified Metabolic Panel 04:00 Cardiac DIET 02/18/25 Transmitted Diet-2gna,Lofat,Lochol Lunch Condition: Stable NITA 02/18/25 In Process 10:09 Acetaminophen Tablet PHA 02/18/25 Logged (Tylenol Tablet) 10:15 Nitroglycerin PHA 02/18/25 Logged Sublingual (Ntrostat 10:15 Morphine Sulfate PHA 02/18/25 Logged Injection 10:15 Stat Ekg For Chest NITA 02/18/25 In Process Pain 10:09 Notify Of Changes NITA 02/18/25 In Process From Base 10:09 Sample Wrapper For NITA 02/18/25 In Process 24 Hours 10:09 Emergency Dysrhythmia NITA 02/18/25 In Process Protocol 10:09 Rhythm Strips Once NITA 02/18/25 In Process Every Shift 10:09 Oxygen By Nasal RT 02/18/25 Transmitted Cannula 10:09 Enoxaparin Sodium PHA 02/19/25 Logged (Lovenox) 10:00 Glucose Blood PHA 02/18/25 Logged (Accu-Chek Comfort 11:30 Insulin R (Human) PHA 02/18/25 Logged (Insulin R) 11:30 Dextrose 50% Syringe PHA 02/18/25 Logged 10:15 Hemoglobin A1c LAB 02/18/25 Logged 10:09 Date of Service: February 18, 2025 Billing Provider: LORAINE FONSECA Common Visit Codes: [id number] INP/OBS CARE (HIGH) LORAINE FONSECA February 18, 2025 10:33
[2025-02-18] MEDS: cefTRIAXone 1GM/50ML D5W 50 ML IV SCH (10:47)
[2025-02-18] MEDS: POLYETHYLENE GLYCOL 17 GM PWDR PO SCH (10:47)
[2025-02-18] MEDS: LACTULOSE 20Gm/30ML SOLN PO ONE (10:47)
[2025-02-18] MEDS ORDERED: MORPHINE SULFATE 4 MG/ML SYR/VIAL IV PRN (11:00)
[2025-02-18] MEDS: ACCU-CHEK COMFORT CURVE STRIP VI SCH (11:39)
[2025-02-18] MEDS: InsuLIN REG 1unit/0.01ml Soln (100units/ml) SC SCH (11:42)
[2025-02-18 15:05] VITALS: BP 110/73; PULSE 83; RESP 16; TEMP 97.5; O2SAT 99
[2025-02-18 17:00] VITALS: BP 110/73; PULSE 82; RESP 19; TEMP 97.5; O2SAT 99
--- NOTE | 2025-02-18 20:13 | DVH ---
US KIDNEY HISTORY: ro kidney stones COMPARISON: None TECHNIQUE: Sonographic grayscale and color doppler evaluation of the kidneys and urinary bladder was performed. FINDINGS: RIGHT: 6.9 cm. Increased echogenicity with cortical thinning. No hydronephrosis. Mid echogenic possib le stone measuring 1.2 cm. LEFT: 12.9 cm. Increased cortical echogenicity. No hydronephrosis. No focal renal mass lesion or shad owing stone BLADDER: The urinary bladder is well distended and appears unremarkable. Right and left ureteral jets are visualized. OTHER: None IMPRESSION: 1. Asymmetric smaller size of the right kidney. 2. Right 1.2 cm kidney stone no hydronephrosis.
[2025-02-18 21:00] VITALS: BP 103/75; PULSE 102; RESP 20; TEMP 99.5; O2SAT 97
[2025-02-18] MEDS: ACETAMINOPHEN 325 MG TAB PO PRN (22:37)
[2025-02-19 01:00] VITALS: BP 125/74; PULSE 96; RESP 20; TEMP 99; O2SAT 97
[2025-02-19 05:00] VITALS: BP 130/72; PULSE 86; RESP 19; TEMP 98.3; O2SAT 94
[2025-02-19 07:54] LABS: Basophils # (auto) 0 10 ^3/uL (0-0.2); Basophils % (auto) 0.4 % (0.0-2.0); Eosinophils # (auto) 0.2 10 ^3/uL (0-0.8); Eosinophils % (auto) 2.5 % (0.0-7.0); Hematocrit 34.8 % (36.0-46.0); Hemoglobin 11.7 g/dL (12.2-16.2); Lymphocytes # (auto) 1.6 10 ^3/uL (0.4-5.4); Lymphocytes % (auto) 18.1 % (10.0-50.0); Mean Corpuscular Hemoglobin 30.2 pg (28.0-32.0); Mean Corpuscular Hgb Conc. 33.7 g/dL (32.0-36.0); Mean Corpuscular Volume 89.6 fL (80.0-100.0); Monocytes # (auto) 0.6 10 ^3/uL (0-1.3); Monocytes % (auto) 7.3 % (0.0-12.0); Neutrophils # (auto) 6.3 10 ^3/uL (1.6-8.6); Neutrophils % (auto) 71.7 % (37.0-80.0); Nucleated Red Blood Cells % 0.1 %; Platelet Count (auto) 296 10^3/uL (140-450); Red Blood Cells 3.88 10^6/uL (4.0-5.20); Red Cell Distribution Width 14.2 % (11.8-14.3); White Blood Cell 8.8 10^3/uL (4.4-10.8)
[2025-02-19 08:13] LABS: Albumin 4.2 g/dL (3.2-4.8); Alkaline Phosphatase 101 U/L (46-116); Anion Gap 8 (5-15); BUN/Creatinine Ratio 20.4 (10.0-20.0); Blood Urea Nitrogen 22 mg/dL (9-23); Calcium 9.6 mg/dL (8.7-10.4); Carbon Dioxide 23 mmol/L (20-31); Potassium 4.4 mmol/L (3.5-5.1); Sodium 140 mmol/L (136-145); Total Protein 7.3 g/dL (5.7-8.2)
[2025-02-19 08:14] LABS: Alanine Aminotransferase < 9 U/L (7-40); Aspartate Aminotransferase 9 U/L (13-40); Bilirubin, Total 0.4 mg/dL (0.2-1.0); Chloride 109 mmol/L (98-107); Glucose 152 mg/dL (74-106)
[2025-02-19 09:00] VITALS: BP 108/71; PULSE 84; RESP 20; TEMP 96.6; O2SAT 98
[2025-02-19] MEDS ORDERED: ENOXAPARIN SOD 30 MG/0.3 ML SYRINGE SC SCH (10:00)
[2025-02-19] MEDS: ENOXAPARIN SOD 40 MG/0.4 ML SYRINGE SC SCH (10:09)
[2025-02-19 12:58] VITALS: BP 110/83; PULSE 92; RESP 18; TEMP 97.6; O2SAT 98
--- NOTE | 2025-02-19 14:24 | DVHPN2 ---
Reviewed: Care Plan, H&P, Labs, Medications, Previous Orders, Radiology Changes from previous H/P or p: No Changes General: Per HPI Genitourinary: Dysuria Objective Vitals Vital Signs Date Time Temp Pulse Resp B/P (MAP) Pulse Ox O2 Delivery O2 Flow Rate FiO2 02/19/25 12:58 97.6 92 18 110/83 (92) 98 97.6 02/19/25 08:04 Nasal Cannula* 2 28 Intake/Output Intake and Output 02/19/25 07:00 Intake Total 675 ml Output Total 1725 ml Balance -1050 ml Intake Oral 675 ml Output Urine Total 1725 ml # Bowel Movements 1 General Appearance: Alert, Oriented X3, Cooperative HEENT: Atraumatic Cardiovascular: Regular rate, Normal S1, Normal S2 Medications Current Medications Medications Dose Ordered Sig/Shira Route Start Time Stop Time Status Last Admin Dose Admin Ceftriaxone Sodium 50 ml @ 100 mls/hr DAILY@09 IV 02/18/25 10:15 02/19/25 10:00 100 MLS/HR Polyethylene Glycol 17 gm DAILY PO 02/18/25 10:15 02/19/25 10:05 17 GM Ondansetron HCl 4 mg Q4HP PRN IV 02/18/25 10:15 Acetaminophen 650 mg Q6HP PRN PO 02/18/25 10:15 02/19/25 12:53 650 MG Nitroglycerin 0.4 mg Q5MINP PRN SL 02/18/25 10:15 Morphine Sulfate 2 mg Q30M PRN IV 02/18/25 10:15 UNV Enoxaparin Sodium 30 mg DAILY SC 02/19/25 10:00 Cancel Diagnostic Test (Pha) 1 strip ACHS 02/18/25 11:30 02/19/25 11:31 1 STRIP Insulin Human Regular ACHS SC 02/18/25 11:30 02/19/25 11:17 4 UNITS Dextrose 50 ml UD PRN IV 02/18/25 10:15 Morphine Sulfate 2 mg Q30M PRN IV 02/18/25 11:00 Enoxaparin Sodium 40 mg DAILY SC 02/19/25 10:00 02/19/25 10:09 40 MG Laboratory Results Laboratory Tests 02/19/25 07:31 Chemistry Test 02/19/25 07:31 Albumin 4.2 g/dL (3.2-4.8) Calcium Level 9.6 mg/dL (8.7-10.4) Total Protein 7.3 g/dL (5.7-8.2) LFT Test 02/19/25 07:31 Alanine Aminotransferase (ALT) < 9 U/L (7-40) Alkaline Phosphatase 101 U/L (46-116) Aspartate Amino Transferase (AST) 9 U/L (13-40) L Total Bilirubin 0.4 mg/dL (0.2-1.0) Urinalysis Test 02/18/25 06:03 Urine Color Colorless (Yellow) Urine Clarity Turbid (Clear) H Urine pH 5.5 (5.0-9.0) Urine Specific [place] 1.021 (1.001-1.035) Urine Protein Trace (Negative) H Urine Ketones Negative (Negative) Urine Blood 2+ /uL (Negative) H Urine Nitrite Negative (Negative) Urine Bilirubin Negative (Negative) Urine Urobilinogen Normal mg/dL (Negative) Urine Leukocyte Esterase 3+ /uL (Negative) Urine RBC 78 /hpf (0 - 4) Urine WBC Clumps Present /hpf (None Seen) Urine Microscopic WBC 379 /HPF (0-5) H Urine Squamous Epithelial Cells Few /hpf (<5) Urine Bacteria Few /hpf (None Seen) H Urine Yeast (Budding) Few /hpf (None Seen) Urine Glucose 4+ mg/dL (Normal) H Microbiology Microbiology Date/Time Source Procedure Growth Status 02/18/25 06:03 Urine - Guti[place] Urine Culture - Preliminary Resulted Labs and/or images reviewed: Labs reviewed by me, Image(s) reviewed by me Assessment/Plan Assessment/Plan Diandra Duncan is a 59-year-old female with past medical history of diabetes, asthma, arthritis, nephrolithiasis status post lithotripsy, chronic Gutiérrez catheter placed here at [facility] 1 year ago, frequent UTIs, wheelchair-bound, and who presents to the ED with burning pain while urinating in her Gutiérrez cath. Patient states that she does not use home oxygen however upon examination she is on 2 L nasal cannula. Patient also states that she is wheelchair-bound not bed-bound. Patient reports that she had the Gutiérrez cath placed in for urinary retention. Patient reports that she is from [facility] which is an assisted living facility Dysuria likely due to acute cystitis with chronic Gutiérrez catheter for 1 year Constipation likely due to fecal retention Probable right nephrolithiasis Acute hypoxic respiratory failure SHANE Diabetes type 2 Obesity History of asthma History of arthritis History of nephrolithiasis status post lithotripsy History of chronic Gutiérrez for 1 year History of being wheelchair-bound History of 02/19/2025: kidney stone evaluation by urology. empirical iv abx, pain control nephrology on board. Plan discussed with: Patient Date of Service: February 19, 2025 Billing Provider: CYN CHAVEZ DO Common Visit Codes: [id number] INP/OBS CARE(HIGH) CYN CHAVEZ DO February 19, 2025 14:24
[2025-02-19 17:00] VITALS: BP 106/63; PULSE 85; RESP 18; TEMP 97.6; O2SAT 97
[2025-02-19 21:00] VITALS: BP 112/73; PULSE 86; RESP 18; TEMP 96.2; O2SAT 96
--- NOTE | 2025-02-19 22:55 | DVHINCON2 ---
Date of service: February 19, 2025 Referring Physician Neri Yu MD Reason for Consultation Acute kidney injury History of Present Illness Diandra Duncan is a 59-year-old F with Past Medical History pertinent for Diabetes, Asthma, Arthritis, Nephrolithiasis status post lithotripsy and chronic Gutiérrez catheter placed 1 year ago, frequent UTIs who is wheelchair-bound who presented to the hospital with burning pain while urinating in her Gutiérrez cath. Patient currently resides at [facility]. Renal US reported asymmetric smaller size of the right kidney; right 1.2 cm kidney stone; no hydronephrosis. Initial labs were remarkable for Creatinine 1.35 with BUN of 29. Glucose 240. Patient is admitted under the care of Dr. Yu. I was asked to consult for management of SHANE. Allergies: Coded Allergies: NO KNOWN ALLERGIES (Unverified , 02/13/25) Home Meds Active Scripts Cephalexin Monohydrate (Cephalexin) 500 Mg Cap, 500 MG PO Q6HR for 7 Days, #28 TAB Prov:ANJU GOEL DO 02/17/25 Ciprofloxacin Hcl (Cipro) 500 Mg Tab, 500 MG PO BID for 7 Days, #14 TAB Prov:VINNIE SOW MD 02/13/25 Current Medications Review of Systems All other systems reviewed and negative unless otherwise noted in HPI. Genitourinary: Positive: Dysuria H&P Exam Vital Signs/I&O Vital Sign Date Time Temp Pulse Resp B/P (MAP) Pulse Ox O2 Delivery O2 Flow Rate FiO2 02/20/25 12:49 96.9 77 16 126/77 (93) 96 96.9 02/20/25 08:10 Room Air* 0 21 Intake and Output 02/19/25 02/20/25 19:00 07:00 Intake Total 1570 ml 650 ml Output Total 1100 ml 950 ml Balance 470 ml -300 ml Intake Oral 1520 ml 650 ml IV Total 50 ml Output Urine Total 1100 ml 950 ml # Bowel Movements 1 Physical Exam Vitals and nursing notes reviewed. General Appearance: Cooperative, No acute distress HEENT: Atraumatic, PERRLA, EOMI, Mucous membr. moist/pink Respiratory: Clear to auscultation, Normal air movement Cardiovascular: Normal S1, Normal S2 Abdominal: Normal bowel sounds, Soft, No tenderness Extremities: No clubbing, No cyanosis Skin: No significant lesion Neuro: Alert, Oriented X3, Normal speech, Normal tone, Sensation intact Psych/Mental Status: Mental status NL, Mood NL Labs/Diagnostic Data Labs/Diagnostic Data Laboratory Tests Test 02/20/25 11:17 02/20/25 05:54 02/19/25 21:28 02/19/25 16:10 Range/Units POC Glucose 224 H 165 H 203 H 224 H 70-106 mg/dl Test 02/19/25 11:06 02/19/25 07:31 02/19/25 06:25 02/18/25 22:32 Range/Units POC Glucose 211 H 207 H 187 H 70-106 mg/dl White Blood Count 8.8 4.4-10.8 10^3/uL Red Blood Count 3.88 L 4.0-5.20 10^6/uL Hemoglobin 11.7 L 12.2-16.2 g/dL Hematocrit 34.8 L 36.0-46.0 % Mean Corpuscular Volume 89.6 80.0-100.0 fL Mean Corpuscular Hemoglobin 30.2 28.0-32.0 pg Mean Corpuscular Hemoglobin Concent 33.7 32.0-36.0 g/dL Red Cell Distribution Width 14.2 11.8-14.3 % Platelet Count 296 140-450 10^3/uL Mean Platelet Volume 7.7 6.9-10.8 fL Neutrophils (%) (Auto) 71.7 37.0-80.0 % Lymphocytes (%) (Auto) 18.1 10.0-50.0 % Monocytes (%) (Auto) 7.3 0.0-12.0 % Eosinophils (%) (Auto) 2.5 0.0-7.0 % Basophils (%) (Auto) 0.4 0.0-2.0 % Neutrophils # (Auto) 6.3 1.6-8.6 10 ^3/uL Lymphocytes # (Auto) 1.6 0.4-5.4 10 ^3/uL Monocytes # (Auto) 0.6 0-1.3 10 ^3/uL Eosinophils # (Auto) 0.2 0-0.8 10 ^3/uL Basophils # (Auto) 0 0-0.2 10 ^3/uL Nucleated Red Blood Cells 0.1 % Sodium Level 140 136-145 mmol/L Potassium Level 4.4 3.5-5.1 mmol/L Chloride Level 109 H 98-107 mmol/L Carbon Dioxide Level 23 20-31 mmol/L Anion Gap 8 5-15 Blood Urea Nitrogen 22 9-23 mg/dL Creatinine 1.08 H 0.550-1.02 mg/dL Glomerular Filtration Rate Calc 58 >90 mL/min BUN/Creatinine Ratio 20.4 H 10.0-20.0 Serum Glucose 152 H 74-106 mg/dL Calcium Level 9.6 8.7-10.4 mg/dL Total Bilirubin 0.4 0.2-1.0 mg/dL Aspartate Amino Transferase (AST) 9 L 13-40 U/L Alanine Aminotransferase (ALT) < 9 7-40 U/L Alkaline Phosphatase 101 46-116 U/L Total Protein 7.3 5.7-8.2 g/dL Albumin 4.2 3.2-4.8 g/dL Test 02/18/25 18:07 02/18/25 11:39 02/18/25 09:20 02/18/25 06:03 Range/Units POC Glucose 162 H 147 H 150 H 70-106 mg/dl Urine Color Colorless Yellow Urine Clarity Turbid H Clear Urine pH 5.5 5.0-9.0 Urine Specific [place] 1.021 1.001-1.035 Urine Protein Trace H Negative Urine Ketones Negative Negative Urine Blood 2+ H Negative /uL Urine Nitrite Negative Negative Urine Bilirubin Negative Negative Urine Urobilinogen Normal Negative mg/dL Urine Leukocyte Esterase 3+ Negative /uL Urine RBC 78 0 - 4 /hpf Urine WBC Clumps Present None Seen /hpf Urine Microscopic WBC 379 H 0-5 /HPF Urine Squamous Epithelial Cells Few <5 /hpf Urine Bacteria Few H None Seen /hpf Urine Yeast (Budding) Few None Seen /hpf Urine Glucose 4+ H Normal mg/dL Test 02/18/25 04:01 Range/Units White Blood Count 9.5 4.4-10.8 10^3/uL Red Blood Count 3.98 L 4.0-5.20 10^6/uL Hemoglobin 12.1 L 12.2-16.2 g/dL Hematocrit 36.2 36.0-46.0 % Mean Corpuscular Volume 90.8 80.0-100.0 fL Mean Corpuscular Hemoglobin 30.5 28.0-32.0 pg Mean Corpuscular Hemoglobin Concent 33.6 32.0-36.0 g/dL Red Cell Distribution Width 14.2 11.8-14.3 % Platelet Count 331 140-450 10^3/uL Mean Platelet Volume 7.8 6.9-10.8 fL Neutrophils (%) (Auto) 71.6 37.0-80.0 % Lymphocytes (%) (Auto) 20.2 10.0-50.0 % Monocytes (%) (Auto) 5.3 0.0-12.0 % Eosinophils (%) (Auto) 2.2 0.0-7.0 % Basophils (%) (Auto) 0.7 0.0-2.0 % Neutrophils # (Auto) 6.8 1.6-8.6 10 ^3/uL Lymphocytes # (Auto) 1.9 0.4-5.4 10 ^3/uL Monocytes # (Auto) 0.5 0-1.3 10 ^3/uL Eosinophils # (Auto) 0.2 0-0.8 10 ^3/uL Basophils # (Auto) 0.1 0-0.2 10 ^3/uL Nucleated Red Blood Cells 0.0 % Sodium Level 139 136-145 mmol/L Potassium Level 4.7 3.5-5.1 mmol/L Chloride Level 107 98-107 mmol/L Carbon Dioxide Level 24 20-31 mmol/L Anion Gap 8 5-15 Blood Urea Nitrogen 29 H 9-23 mg/dL Creatinine 1.35 H 0.550-1.02 mg/dL Glomerular Filtration Rate Calc 45 >90 mL/min BUN/Creatinine Ratio 21.5 H 10.0-20.0 Serum Glucose 240 H 74-106 mg/dL Hemoglobin A1c 7.4 H <5.7 % A1C Calcium Level 9.4 8.7-10.4 mg/dL Assessment Dysuria SHANE Constipation Type 2 Diabetes Mellitus Obesity Plan/Recommendation Agreement with your ongoing assessment and plan of care. Monitor daily labs to include renal function and electrolytes. Electrolyte replacement prn. IV or oral hydration. Avoid nephrotoxic medications. IV antibiotics with Ceftriaxone. Pain management prn. Bowel care regimen. DVT prophylaxis with Lovenox 40 mg SC daily. Additional plan as per the hospital course. Plan discussed with: Patient, Other (RN) EVERARDO VIDES DO February 19, 2025 22:55
[2025-02-20 01:00] VITALS: BP 124/69; PULSE 85; RESP 18; TEMP 98.9; O2SAT 95
[2025-02-20 05:00] VITALS: BP 115/63; PULSE 83; RESP 18; TEMP 97.1; O2SAT 95
[2025-02-20 08:54] VITALS: BP 114/79; PULSE 79; RESP 17; TEMP 97; O2SAT 98
--- NOTE | 2025-02-20 12:44 | DVHDS2 ---
Discharge Summary Date of Admission February 18, 2025 at 10:09 Date of Discharge: February 20, 2025 Labs/Diagnostic Data: Laboratory Results Test 02/20/25 11:17 02/19/25 07:31 02/18/25 06:03 02/18/25 04:01 POC Glucose 224 mg/dl (70-106) White Blood Count 8.8 10^3/uL (4.4-10.8) Red Blood Count 3.88 10^6/uL (4.0-5.20) Hemoglobin 11.7 g/dL (12.2-16.2) Hematocrit 34.8 % (36.0-46.0) Mean Corpuscular Volume 89.6 fL (80.0-100.0) Mean Corpuscular Hemoglobin 30.2 pg (28.0-32.0) Mean Corpuscular Hemoglobin Concent 33.7 g/dL (32.0-36.0) Red Cell Distribution Width 14.2 % (11.8-14.3) Platelet Count 296 10^3/uL (140-450) Mean Platelet Volume 7.7 fL (6.9-10.8) Neutrophils (%) (Auto) 71.7 % (37.0-80.0) Lymphocytes (%) (Auto) 18.1 % (10.0-50.0) Monocytes (%) (Auto) 7.3 % (0.0-12.0) Eosinophils (%) (Auto) 2.5 % (0.0-7.0) Basophils (%) (Auto) 0.4 % (0.0-2.0) Neutrophils # (Auto) 6.3 10 ^3/uL (1.6-8.6) Lymphocytes # (Auto) 1.6 10 ^3/uL (0.4-5.4) Monocytes # (Auto) 0.6 10 ^3/uL (0-1.3) Eosinophils # (Auto) 0.2 10 ^3/uL (0-0.8) Basophils # (Auto) 0 10 ^3/uL (0-0.2) Nucleated Red Blood Cells 0.1 % Sodium Level 140 mmol/L (136-145) Potassium Level 4.4 mmol/L (3.5-5.1) Chloride Level 109 mmol/L (98-107) Carbon Dioxide Level 23 mmol/L (20-31) Anion Gap 8 (5-15) Blood Urea Nitrogen 22 mg/dL (9-23) Creatinine 1.08 mg/dL (0.550-1.02) Glomerular Filtration Rate Calc 58 mL/min (>90) BUN/Creatinine Ratio 20.4 (10.0-20.0) Serum Glucose 152 mg/dL (74-106) Calcium Level 9.6 mg/dL (8.7-10.4) Total Bilirubin 0.4 mg/dL (0.2-1.0) Aspartate Amino Transferase (AST) 9 U/L (13-40) Alanine Aminotransferase (ALT) < 9 U/L (7-40) Alkaline Phosphatase 101 U/L (46-116) Total Protein 7.3 g/dL (5.7-8.2) Albumin 4.2 g/dL (3.2-4.8) Urine Color Colorless (Yellow) Urine Clarity Turbid (Clear) Urine pH 5.5 (5.0-9.0) Urine Specific [place] 1.021 (1.001-1.035) Urine Protein Trace (Negative) Urine Ketones Negative (Negative) Urine Blood 2+ /uL (Negative) Urine Nitrite Negative (Negative) Urine Bilirubin Negative (Negative) Urine Urobilinogen Normal mg/dL (Negative) Urine Leukocyte Esterase 3+ /uL (Negative) Urine RBC 78 /hpf (0 - 4) Urine WBC Clumps Present /hpf (None Seen) Urine Microscopic WBC 379 /HPF (0-5) Urine Squamous Epithelial Cells Few /hpf (<5) Urine Bacteria Few /hpf (None Seen) Urine Yeast (Budding) Few /hpf (None Seen) Urine Glucose 4+ mg/dL (Normal) Hemoglobin A1c 7.4 % A1C (<5.7) Other Laboratory Tests 02/19/25 07:31 Brief Hx & Hospital Course: Diandra Duncan is a 59-year-old female with past medical history of diabetes, asthma, arthritis, nephrolithiasis status post lithotripsy, chronic Gutiérrez catheter placed here at [facility] 1 year ago, frequent UTIs, wheelchair-bound, and who presents to the ED with burning pain while urinating in her Gutiérrez cath. Patient states that she does not use home oxygen however upon examination she is on 2 L nasal cannula. Patient also states that she is wheelchair-bound not bed-bound. Patient reports that she had the Gutiérrez cath placed in for urinary retention. Patient reports that she is from [facility] which is an assisted living facility Dysuria likely due to acute cystitis with chronic Gutiérrez catheter for 1 year Constipation likely due to fecal retention Probable right nephrolithiasis Acute hypoxic respiratory failure SHANE Diabetes type 2 Obesity History of asthma History of arthritis History of nephrolithiasis status post lithotripsy History of chronic Gutiérrez for 1 year History of being wheelchair-bound History of 02/19/2025: kidney stone evaluation by urology. empirical iv abx, pain control nephrology on board. 02/20/2025 discharged to home Condition at Discharge: Fair Final Diagnosis/Problems List see above Discharge Disposition: Home Discharge Instruct/Medications Diet: Cardiac 2g Na,low cholest Activity: No Restrictions, As Tolerated Discharge Statement: "Patient was advised to return to the ER or call 911 if any headaches, dizziness, shortness of breath, chest pain, abdominal pain, bleeding, fevers, or worsening of medical condition. Patient was counseled about treatment plan, medications, possible side effects, patientverbalized understanding. All questions were answered to the best of my ability. This discharge took greater then 30 minutes in planning, reviewing documentation, counseling the patient, and discussing with other team members." ASSESSMENT ASSESSMENT Assessment Date of Service: February 20, 2025 Billing Provider: CYN CHAVEZ DO Common Visit Codes: [id number] INP/OBS CARE(HIGH) CYN CHAVEZ DO February 20, 2025 12:44
[2025-02-20 12:49] VITALS: BP 126/77; PULSE 77; RESP 16; TEMP 96.9; O2SAT 96
--- NOTE | 2025-02-20 19:10 | DVHPN2 ---
Progress Note - Dictate Date Seen: February 20, 2025 Has the PT tested + for MRSA If YES, has PT been informed?: No Medical Necessity Reason Pt with a Central, PICC or Fol: No Subjective Patient was seen and evaluated in follow up. No acute events overnight. Patient reports feeling better. Renal function labs improved. vital signs Vital Sign Date Time Temp Pulse Resp B/P (MAP) Pulse Ox O2 Delivery O2 Flow Rate FiO2 02/20/25 12:49 96.9 77 16 126/77 (93) 96 96.9 02/20/25 08:10 Room Air* 0 21 Total Intake and Output 02/19/25 02/19/25 02/20/25 15:00 23:00 07:00 Intake Total 1570 ml 650 ml Output Total 1100 ml 950 ml Balance 470 ml -300 ml medications Current Medications Medications Dose Ordered Sig/Shira Route Start Time Stop Time Status Last Admin Dose Admin Morphine Sulfate 2 mg Q30M PRN IV 02/18/25 10:15 UNV Enoxaparin Sodium 30 mg DAILY SC 02/19/25 10:00 Cancel objective Vitals and nursing notes reviewed. General Appearance: Cooperative, No acute distress HEENT: Atraumatic, PERRLA, EOMI, Mucous membr. moist/pink Respiratory: Clear to auscultation, Normal air movement Cardiovascular: Normal S1, Normal S2 Abdominal: Normal bowel sounds, Soft, No tenderness Extremities: No clubbing, No cyanosis Skin: No significant lesion Neuro: Alert, Oriented X3, Normal speech, Normal tone, Sensation intact Psych/Mental Status: Mental status NL, Mood NL laboratory and microbiology Laboratory Tests 02/19/25 07:31 Test 02/19/25 07:31 Range/Units Serum Glucose 152 H 74-106 mg/dL Problem List Dysuria SHANE Constipation Type 2 Diabetes Mellitus Obesity Assessment/Plan DC planning in progress. Returning to SNF. Cleared for discharge from Nephrology standpoint. Plan discussed with: Patient, Other (RN) EVERARDO VIDES DO February 20, 2025 19:10
== END 2025-02-20 16:30 | disposition home or self-care (01) | DRG 466 ==
LOC: ER 03:44 → EDBD 03:44 → OVERFLOW 10:09 → EAST 15:00
PROVIDERS: ADMIT Internal Medicine; ATTEND Internal Medicine
DX: T83.518A Infection and inflammatory reaction due to other urinary catheter, initial encounter (principal); J96.01 Acute respiratory failure with hypoxia; N17.9 Acute kidney failure, unspecified; N30.00 Acute cystitis without hematuria; N20.0 Calculus of kidney; Z68.31 Body mass index [BMI] 31.0-31.9, adult; J45.909 Unspecified asthma, uncomplicated; E11.9 Type 2 diabetes mellitus without complications; E66.01 Morbid (severe) obesity due to excess calories; K59.00 Constipation, unspecified; Z74.01 Bed confinement status; Z99.3 Dependence on wheelchair
CPT/HCPCS: 36415; 74018; 76775; 80048; 80053; 81001; 82962; 83036; 85025; 87086; 87088; 87186; G0378; J1815

== ENCOUNTER 2025-04-19 08:27 | Outpatient (CLI) | payer MEDICAID ==
[2025-04-19 09:21] LABS: Albumin 4.6 g/dL (3.2-4.8); Anion Gap 8 (5-15); BUN/Creatinine Ratio 17.6 (10.0-20.0); Bilirubin, Total 0.3 mg/dL (0.2-1.0); Calcium 9.9 mg/dL (8.7-10.4); Carbon Dioxide 27 mmol/L (20-31); Chloride 100 mmol/L (98-107); Cholesterol 156 mg/dL (< 200); HDL Cholesterol 40 mg/dL (40-59); Potassium 5.1 mmol/L (3.5-5.1); Total Protein 7.6 g/dL (5.7-8.2)
[2025-04-19 09:23] LABS: Alanine Aminotransferase < 9 U/L (7-40); Alkaline Phosphatase 132 U/L (46-116); Blood Urea Nitrogen 29 mg/dL (9-23); Glucose 329 mg/dL (74-106); Sodium 135 mmol/L (136-145); Triglycerides 350 mg/dL (< 150)
== END 2025-04-19 17:00 | disposition home or self-care (01) ==
LOC: LAB 08:27
PROVIDERS: ATTEND Internal Medicine
DX: E11.9 Type 2 diabetes mellitus without complications (principal)
CPT/HCPCS: 36415; 80053; 80061; 83036

== ENCOUNTER → 2025-04-29 | Outpatient (CLI) | payer MEDICAID ==
[2025-04-29 10:13] LABS: Magnesium 1.9 mg/dL (1.6-2.6)
[2025-04-29 10:14] LABS: Creatine Kinase IFCC 31.0 U/L (34-145)
== END | disposition home or self-care (01) ==
LOC: LAB 09:02
PROVIDERS: ATTEND Internal Medicine
DX: M25.561 Pain in right knee (principal); E11.9 Type 2 diabetes mellitus without complications; F29 Unspecified psychosis not due to a substance or known physiological condition
CPT/HCPCS: 36415; 82550; 83735

== ENCOUNTER 2025-07-19 08:00 | Outpatient (CLI) | payer MEDICAID ==
[2025-07-19 08:56] LABS: Albumin 4.7 g/dL (3.2-4.8); Alkaline Phosphatase 114 U/L (46-116); Bilirubin, Direct 0.1 mg/dL (<0.3); Bilirubin, Total 0.4 mg/dL (0.2-1.0); Cholesterol 159 mg/dL (< 200); HDL Cholesterol 43 mg/dL (40-59)
[2025-07-19 08:58] LABS: Alanine Aminotransferase < 9 U/L (7-40); Total Protein 8.4 g/dL (5.7-8.2)
[2025-07-19 08:59] LABS: Triglycerides 251 mg/dL (< 150)
== END 2025-07-19 17:00 | disposition home or self-care (01) ==
LOC: LAB 08:00
PROVIDERS: ATTEND Internal Medicine
DX: E11.9 Type 2 diabetes mellitus without complications (principal); E78.5 Hyperlipidemia, unspecified
CPT/HCPCS: 36415; 80061; 80076; 83036